=== PATIENT | female | born 1995 | race Native Hawaiian/Other Pacific Islander ===

== ENCOUNTER 2017-09-18 08:28 | Emergency (ER) | payer SELFPAY ==
[2017-09-18 08:36] VITALS: RESP 16; TEMP 97.8; O2SAT 98
[2017-09-18] MEDS ORDERED: Amoxicillin-Clav 875-125 mg Tab PO STA (08:58)
--- NOTE | 2017-09-18 09:04 | C.PDOC ---
History Of Present Illness 22 yo female w/o significant PMHx come in for evaluation of malaise, subjective fever, sore throat and swelling, " have raspy voice since today AM" gradually developed for past 2 days. Pt admits, (+) sick contact family member. Otherwise , pt denies high fever, chills, headache, dizziness, drooling, dyspnea, cough, CP, SOB, dyspnea, palpitation, abd. pain, V/D, UTI sx. Ambulate to Ed for evaluation, not in any apparent distress. Time Seen by Provider: 09/18/17 08:44 Chief Complaint (Nursing): ENT Problem History Per: Patient Past Medical History Reviewed: Historical Data, Nursing Documentation, Vital Signs Vital Signs: Last Vital Signs Temp 97.8 F 09/18/17 08:32 Pulse 99 H 09/18/17 08:32 Resp 16 09/18/17 08:32 BP 119/79 09/18/17 08:32 Pulse Ox 98 09/18/17 08:32 - Medical History PMH: No Chronic Diseases Surgical History: No Surg Hx Family History: States: No Known Family Hx - Social History Hx Tobacco Use: No Hx Alcohol Use: No Hx Substance Use: No - Immunization History Hx Influenza Vaccination: No Review Of Systems Except As Marked, All Systems Reviewed And Found Negative. Constitutional: Positive for: Fever (subjective), Malaise Eyes: Negative for: Vision Change ENT: Positive for: Nose Congestion, Throat Pain, Throat Swelling. Negative for : Ear Pain, Ear Discharge, Nose Discharge Cardiovascular: Negative for: Chest Pain Respiratory: Negative for: Cough, Shortness of Breath, Wheezing Gastrointestinal: Negative for: Nausea, Vomiting, Abdominal Pain, Diarrhea Genitourinary: Negative for: Dysuria Musculoskeletal: Negative for: Neck Pain Skin: Negative for: Rash Neurological: Negative for: Altered Mental Status, Headache, Dizziness Physical Exam - Physical Exam Appears: Well, Non-toxic, No Acute Distress Skin: Normal Color, Warm, Dry, No Rash Head: Normacephalic Eye(s): bilateral: PERRL Ear(s): Bilateral: Normal Nose: No Flaring, Discharge (B/L nasal congestion), No Deformity, No Tenderness Oral Mucosa: Moist, No Drooling Tongue: No Lesions Lips: No Lesions Throat: Erythema (mod B/L with mild edema.), No Exudate, No Drooling Neck: Trachea Midline, Supple, Other ((-) meningeal sign) Cardiovascular: Rhythm Regular Respiratory: No Decreased Breath Sounds, No Accessory Muscle Use, No Stridor, No Wheezing Gastrointestinal/Abdominal: Soft, No Tenderness, No Distention, No Guarding Back: No CVA Tenderness, No Vertebral Tenderness Extremity: Normal ROM, No Deformity, No Swelling Neurological/Psych: Oriented x3, Normal Speech ED Course And Treatment O2 Sat by Pulse Oximetry: 98 Pulse Ox Interpretation: Normal Progress Note: On re-evaluation, pt is afebrile, hemodynamicaly stable. Non- toxic, tolerate po well in ED. PulseOx 98% RA. neck: Supple, (-) meningeal sign. ENT: exam c/w acute pharyngitis. Uvula midline, no edema. Lungs: CTA B/L , BS equal B/L. Abd: benign. Neurologicaly intact. Pt advised on course of ds. ref. to f/u with PMD, ENT in 2-3 days for re-eval. return to ED if any worsening or new changes. Disposition Counseled Patient/Family Regarding: Diagnosis, Need For Followup, Rx Given - Disposition Referrals: [facility] [Outside] Hernesto Ramirez MD [Staff Provider] - Disposition: HOME/ ROUTINE Disposition Time: 09:06 Condition: STABLE Additional Instructions: Encourage fluids take medication as prescribed Gurgle throat with warm salty water Follow up with PMD , ENT in 2-3 days for re-evaluation. return to ED if any worsening or new changes. Prescriptions: Amoxicillin/Clavulanate [Augmentin 875 MG-125 MG] 1 tab PO BID #14 tab Ibuprofen [Motrin Tab] 400 mg PO Q6 #14 tab Prednisone [Deltasone] 40 mg PO DAILY #6 tablet Instructions: Sore Throat in Adults Forms: [employer] (Irish) - Clinical Impression Clinical Impression: Pharyngitis
[2017-09-18] MEDS ORDERED: Amoxicillin-Clav 875-125 mg Tab PO ONE (09:12)
[2017-09-18 09:34] VITALS: BP 110/70; PULSE 85
== END 2017-09-18 09:38 | disposition home or self-care (01) ==
LOC: C.ER 08:28
DX: J02.9 Acute pharyngitis, unspecified (principal)